=== PATIENT | female | born 1990 | race African-American/Black ===

== ENCOUNTER 2018-01-29 18:54 | Emergency (ER) | payer SELFPAY ==
[~2018-01-29] VITALS: Ht 162.6 cm; Wt 63.5 kg
[2018-01-29] MEDS ORDERED: ZYPREXA10 MG ORAL (19:09)
[2018-01-29] MEDS ORDERED: SEROQUEL200 MG ORAL ×2 (19:09)
[2018-01-29 19:20] VITALS: BP 127/78
[2018-01-29 20:16] LABS: ANION GAP 15 mmol/L (5-15); BLOOD UREA NITROGEN 5 mg/dL (7-18); CALCIUM 8.9 MG/DL (8.5-10.1); CARBON DIOXIDE 25 MMOL/L (21-32); CHLORIDE 102 MMOL/L (98-107); CREATININE 0.9 MG/DL (0.55-1.30); POTASSIUM 3.3 MMOL/L (3.5-5.1); SODIUM 141 MMOL/L (136-145)
[2018-01-29 20:18] LABS: BASOPHILS % (AUTO) 1.6 % (0.0-2.0); EOSINOPHILS % (AUTO) 0.6 % (0.0-3.0); HEMATOCRIT 37.3 % (37.0-47.0); LYMPHOCYTES % (AUTO) 49.3 % (20.0-45.0); MEAN CORPUSCULAR VOLUME 89 FL (80-99); MONOCYTES % (AUTO) 6.8 % (1.0-10.0); NEUTROPHILS % (AUTO) 41.7 % (45.0-75.0); PLATELET COUNT 195 K/UL (150-450); RED BLOOD COUNT 4.17 M/UL (4.20-5.40); RED CELL DISTRIBUTION WIDTH 12.2 % (11.6-14.8); WHITE BLOOD COUNT 6.6 K/UL (4.8-10.8)
[2018-01-29 20:20] LABS: ALANINE AMINOTRANSFERASE 34 U/L (12-78); ALBUMIN 3.9 G/DL (3.4-5.0); ALBUMIN/GLOBULIN RATIO 0.8 (1.0-2.7); ALKALINE PHOSPHATASE 75 U/L (46-116); ASPARTATE AMINO TRANSFERASE 38 U/L (15-37); BILIRUBIN,TOTAL 0.2 MG/DL (0.2-1.0)
[2018-01-29] MEDS ORDERED: Ketorolac 30mg Inj IV ONE (20:45)
--- NOTE | 2018-01-29 21:10 | Emergency Room Report ---
History of Present Illness General Chief Complaint: General Complaint Source: Patient Present Illness HPI 27-year-old female presents emergency Department with 2 complaints the first being 10 out of 10 in severity left-sided shoulder pain that is throbbing in nature and on occasion radiates down her left arm x one week. Patient denies trauma or fall. She denies open wounds, erythema or rashes. She states that she is right-hand dominant. Denies numbness tingling or loss of sensation or gross motor movements of the extremities, incontinence of bowel or bladder. Denies CP, Palpitations, LOC, AMS, dizziness, Changes in Vision, paresthesias, or a sudden severe headache. Second complaint is that she has been experiencing multiple episodes of nausea and vomiting 1 week as well patient wants to have testing performed. Patient denies urinary frequency, urgency, hematuria or dysuria. Patient reports history of manic depression and that she takes Zyprexa twice daily. She denies drug use Allergies: Coded Allergies: ACETAMINOPHEN (Verified Allergy, Severe, 01/29/18) breathing problem HYDROCODONE (Verified Allergy, Severe, 01/29/18) breathing problem Patient History Past Medical History: see triage record Past Surgical History: none Pertinent Family History: none Last Menstrual Period: irregular period Reviewed Nursing Documentation: PMH: Agreed; PSxH: Agreed Nursing Documentation-PMH Past Medical History: No Stated History History Of Psychiatric Problem: Yes - Bipolar and depression Review of Systems All Other Systems: negative except mentioned in HPI Physical Exam Vital Signs Date Time Temp Pulse Resp B/P (MAP) Pulse Ox O2 Delivery O2 Flow Rate FiO2 01/29/18 19:02 98.2 104 18 131/83 95 Room Air 98.2 Sp02 EP Interpretation: reviewed, normal General Appearance: alert, GCS 15, non-toxic, mild distress Head: normocephalic, atraumatic Eyes: bilateral eye normal inspection, bilateral eye PERRL ENT: hearing grossly normal, normal voice Neck: full range of motion, no meningismus, no bony tend Respiratory: chest non-tender, lungs clear, normal breath sounds, speaking full sentences Cardiovascular #1: regular rate, rhythm, no edema, normal capillary refill Gastrointestinal: normal bowel sounds, non tender, soft Rectal: deferred Genitourinary: normal inspection, no CVA tenderness Musculoskeletal: back normal, gait/station normal, normal range of motion, non- tender Neurologic: alert, oriented x3, responsive, motor strength/tone normal, sensory intact, speech normal, grossly normal Psychiatric: other - Pt. is very repetitive with complaints and descriptions/ conversations. Verbalizing tremendous pain but observed to be using arm normally without grimacing. Pt. appears intoxicated. Skin: normal color, no rash, warm/dry, well hydrated Lymphatic: no adenopathy Medical Decision Making PA Attestation Dr. gomez is my supervising Physician whom patient management has been discussed with. Diagnostic Impression: Primary Impression: Shoulder pain, left Qualified Codes: M25.512 - Pain in left shoulder Additional Impression: Nausea & vomiting Qualified Codes: R11.2 - Nausea with vomiting, unspecified ER Course 27-year-old female presents emergency Department with 2 complaints the first being 10 out of 10 in severity left-sided shoulder pain that is throbbing in nature and on occasion radiates down her left arm x one week. Patient denies trauma or fall. She denies open wounds, erythema or rashes. She states that she is right-hand dominant. Denies numbness tingling or loss of sensation or gross motor movements of the extremities, incontinence of bowel or bladder. Denies CP, Palpitations, LOC, AMS, dizziness, Changes in Vision, paresthesias, or a sudden severe headache. Second complaint is that she has been experiencing multiple episodes of nausea and vomiting 1 week as well patient wants to have testing performed. Patient denies urinary frequency, urgency, hematuria or dysuria. Patient reports history of manic depression and that she takes Zyprexa twice daily. She denies drug use Ddx considered but are not limited to Fracture, dislocation, contusion, Sprain/ Strain/Spasm, or UTI just to name a few Vital signs: are WNL, pt. is afebrile H&PE are most consistent with c/o musculoskeletal injury will perform imaging to r/o fractures/dislocations.- Clinical appearance aligns with possible bicept tendonitis or strain. Pt. has psych features as well as intoxication. multiple times during ED visit pt. and visitor are arguing/throwing things. They have closed the door several times and began rummaging through [employer] ( per RN) asked multiple times to stop and keep door open. ORDERS: - CBC, CMP: Unremarkable - UA & Urine Hcg: pt. refuses to provide urine... - Serum Hcg Screen: Negative. - X-ray Right shoulder 3 views - negative for fx, Dislocation, or significant soft tissue injury, per preliminary read in ED, and signed by JESS Daniel, my supervising physician has reviewed, and agrees with my interpretation. ED INTERVENTIONS: - Toradol IM -Zyprexa Zydis 5 mg DISCHARGE: At this time pt. is stable for d/c to home. Will provide printed patient care instructions, and any necessary prescriptions. Care plan and follow up instructions have been discussed with the patient prior to discharge. Labs Test 01/29/18 19:40 White Blood Count 6.6 K/UL (4.8-10.8) Red Blood Count 4.17 M/UL (4.20-5.40) Hemoglobin 13.0 G/DL (12.0-16.0) Hematocrit 37.3 % (37.0-47.0) Mean Corpuscular Volume 89 FL (80-99) Mean Corpuscular Hemoglobin 31.3 PG (27.0-31.0) Mean Corpuscular Hemoglobin Concent 35.0 G/DL (32.0-36.0) Red Cell Distribution Width 12.2 % (11.6-14.8) Platelet Count 195 K/UL (150-450) Mean Platelet Volume 6.7 FL (6.5-10.1) Neutrophils (%) (Auto) 41.7 % (45.0-75.0) Lymphocytes (%) (Auto) 49.3 % (20.0-45.0) Monocytes (%) (Auto) 6.8 % (1.0-10.0) Eosinophils (%) (Auto) 0.6 % (0.0-3.0) Basophils (%) (Auto) 1.6 % (0.0-2.0) Sodium Level 141 MMOL/L (136-145) Potassium Level 3.3 MMOL/L (3.5-5.1) Chloride Level 102 MMOL/L (98-107) Carbon Dioxide Level 25 MMOL/L (21-32) Anion Gap 15 mmol/L (5-15) Blood Urea Nitrogen 5 mg/dL (7-18) Creatinine 0.9 MG/DL (0.55-1.30) Estimat Glomerular Filtration Rate > 60 mL/min (>60) Glucose Level 146 MG/DL (74-106) Calcium Level 8.9 MG/DL (8.5-10.1) Total Bilirubin 0.2 MG/DL (0.2-1.0) Aspartate Amino Transf (AST/SGOT) 38 U/L (15-37) Alanine Aminotransferase (ALT/SGPT) 34 U/L (12-78) Alkaline Phosphatase 75 U/L (46-116) Total Protein 8.8 G/DL (6.4-8.2) Albumin 3.9 G/DL (3.4-5.0) Globulin 4.9 g/dL Albumin/Globulin Ratio 0.8 (1.0-2.7) Human Chorionic Gonadotropin, Qual Negative Other X-Ray Diagnostic Results Other X-Ray Diagnostic Results : X-Ray ordered: Left Shoulder # of Views/Limited Vs Complete: 3 View Indication: Pain EP Interpretation: Yes PA Xray: Interpretation reviewed, by supervising MD, and agrees with findings. Interpretation: no dislocation, no soft tissue swelling, no fractures Impression: No acute disease Electronically Signed by: Maria Esther Daniel PA-C Last Vital Signs Date Time Temp Pulse Resp B/P (MAP) Pulse Ox O2 Delivery O2 Flow Rate FiO2 01/29/18 20:58 98.1 01/29/18 19:20 76 18 127/78 96 Room Air Disposition: HOME, SELF-CARE Condition: Stable Scripts Ibuprofen* (MOTRIN*) 400 Mg Tablet 400 MG ORAL THREE TIMES A DAY, #20 TAB 0 Refills Prov: Maria Esther Daniel 01/29/18 Referrals: NON PHYSICIAN (PCP) Patient Instructions: Nausea and Vomiting, Adult, [id number], Shoulder Pain, [id number] Additional Instructions: Take Medications as prescribed Recommend evaluation [facility]. Follow up with a Primary Care Provider in 3-5 days, even if your symptoms have resolved. --Please review list of primary care clinics, if you do not already have a primary care provider Return sooner to ED if new symptoms occur, or current symptoms become worse. - Please note that this Emergency Department Report was dictated using [employer] producer technology software, occasionally this can lead to erroneous entry secondary to interpretation by the dictation equipment. Maria Esther Daniel January 29, 2018 21:10
[2018-01-29] MEDS ORDERED: IBUPROFEN400 MG ORAL (21:12)
[2018-01-29] MEDS ORDERED: ZyPREXA Zydis 5mg tab ORAL ONE (21:15)
[2018-01-29 22:10] VITALS: BP 122/68
--- NOTE | 2018-01-30 10:46 | Diagnostic Imaging Report ---
Indication: left shoulder pain Findings: 3 views of the left shoulder were obtained. Alignment of the left shoulder is normal. No acute fracture is identified. Soft tissues are unremarkable. Impression: No acute injury
== END 2018-01-29 22:10 | disposition home or self-care (01) ==
LOC: EMR 19:54
DX: M25.512 Pain in left shoulder (principal); R11.2 Nausea with vomiting, unspecified; F32.9 Major depressive disorder, single episode, unspecified; Z88.6 Allergy status to analgesic agent; F31.9 Bipolar disorder, unspecified
CPT/HCPCS: 36415; 73030; 80053; 84703; 85025; 96374; 96375; 99283; J1885